=== PATIENT | male | born 1950 | race Caucasian/White ===

== ENCOUNTER 2021-05-09 11:04 | Inpatient (IN) | payer MEDICARE, BC, SELFPAY ==
[2021-05-09] VITALS (53 sets, daily range): BP systolic 84–118; BP diastolic 55–99; PULSE 60–90; RESP 11–27; TEMP 36.4–36.8; O2SAT 86–96
--- NOTE | ~2021-05-09 | XR_ITS ---
EXAMINATION: XR chest 1V portable 05/09/2021 11:44 INDICATION: Shortness of breath and cough PROCEDURE: AP portable chest COMPARISON: 09/22/2015 FINDINGS: The lungs are clear. The cardiomediastinal silhouette is within normal limits. There are no pleural effusions. There is no pneumothorax suspected. IMPRESSION: 1: NO ACUTE CARDIOPULMONARY DISEASE. Reviewed, dictated and finalized at location B. RUCTIONAL DESIGN SPECIALIST
--- NOTE | ~2021-05-09 | XR_ITS ---
XR chest 2V 05/12/2021 09:19 Indication: Pneumonia. Procedure: 2 view chest Comparison: 05/09/2021 Findings: Heart size normal. No focal air space disease, pulmonary edema, pleural effusion or suspect ed pneumothorax. No acute osseous abnormality. Impression: 1: No acute cardiopulmonary disease. Reviewed, dictated and finalized at location A. AND LINK KNITTING MACHINE OPERATOR Impression: 1: No acute cardiopulmonary disease.
--- NOTE | ~2021-05-09 | CT_ITS ---
EXAMINATION: CTA chest PE protocol DATE: 05/09/2021 13:01 PYROTECHNICIAN INDICATION: Hypoxia, fatigue and dry cough TECHNIQUE: Computed tomographic angiography (CTA) of the chest was performed with 100 mL Omnipaque-35 0 intravenous contrast. The dose-length product was 908.68 mGy-cm. Maximum intensity projection 3D-re constructions of the aorta and other arteries were constructed by the technologist on a separate work station. Automated exposure control and iterative reconstruction technique were employed. COMPARISON: None. FINDINGS: Study is technically adequate without evidence for pulmonary embolism. No thoracic lymphade nopathy. There is mediastinal lipomatosis. No significant pleural or pericardial effusion. The upper abdomen is unremarkable. There are reticulonodular densities in the right upper lobe, most likely inf ectious. No endobronchial lesions. There is dependent atelectasis. No pneumothorax. No endobronchial lesions. IMPRESSION: 1. Reticulonodular densities right upper lobe, most likely infectious/inflammatory. 2: No evidence for pulmonary embolism. Reviewed, dictated and finalized at location B. TECHNICIAN IMPRESSION: 1. Reticulonodular densities right upper lobe, most likely infectious/inflammat ory. 2: No evidence for pulmonary embolism.
--- NOTE | 2021-05-09 11:46 | ED.SOB ---
HPI - SOB/Dyspnea General Chief Complaint: Shortness of Breath/Dyspnea Stated Complaint: resp distress Time Seen by Provider: 05/09/21 11:05 History of Present Illness HPI Narrative: Patient is a 71-year-old male who presents ER with shortness of breath. Reports he has had a cough over the last week. His PCP prescribed Levaquin and Medrol Dosepak. He is not improving. Over the last couple days he has developed exertional shortness of breath I will occasionally give him some tightness. He is found to be hypoxic on room air and placed on supplemental O2. He reports he obtained a Covid swab at an urgent care prior to being sent here. No lower extremity swelling. No wheezing. No alleviating factors. No known sick contacts. He has had 3 doses of the Covid vaccine. Patient is HIV positive and compliant with antiretroviral therapy. Reports he has had undetectable viral load and normal CD4 count. Related Data Allergies Allergy/AdvReac Type Severity Reaction Status Date / Time No Known Allergies Allergy Verified 05/09/21 11:17 Review of Systems Review of Systems: All systems reviewed & are unremarkable except as noted in HPI and below Constitutional: Constitutional: Denies chills, Reports fatigue and Denies fever(s) ENT: Denies nasal congestion and Denies sore throat Cardiovascular: Cardiovascular: Reports chest pain, Denies rapid heart rate and Denies radiating jaw, neck or arm pain Respiratory: Respiratory: Denies chest congestion, Reports cough, Reports dyspnea and Denies wheezing Gastrointestinal: Gastrointestinal: Denies abdominal pain, Denies nausea and Denies vomiting PMFSH Past Medical History Medical History (Updated 05/09/21 @ 14:53 by Ramiro Jacques MD) HIV (human immunodeficiency virus infection) Hypercholesterolemia Hypertension Surgical History Surgical History (Updated 05/09/21 @ 11:50 by Ramiro Jacques MD) H/O neck surgery Social History Social History (Updated 05/09/21 @ 11:51 by Ramiro Jacques MD) Smoking status: Never smoker Exam Narrative: GENERAL: Well-appearing, well-nourished, and in no acute distress. HEAD: Normocephalic, atraumatic. CHEST: Clear to auscultation. No respiratory distress. HEART: Regular rate and rhythm. Normal peripheral pulses. ABDOMEN: Soft, nontender, nondistended. EXTREMITIES: Normal range of motion. No edema. SKIN: Warm, dry, no rash. NEURO: Alert and oriented x3. PSYCH: Normal mood and affect. Course Course Emergency Course: Patient informed of results. Admit to hospitalist service. Will give some Decadron which may help with his hypoxia. Vital Signs Vital signs: Vital Signs Respiratory Rate 26 H 05/09/21 11:08 Temperature 98.2 F 05/09/21 11:11 Pulse Rate 78 05/09/21 14:32 Respiratory Rate 23 H 05/09/21 14:32 Blood Pressure 118/87 05/09/21 14:32 Pulse Oximetry 93 05/09/21 14:32 MDM - SOB/Dyspnea Lab Data Result diagrams: 05/09/21 11:57 05/09/21 11:57 Labs: Lab Results 05/09/21 05/09/21 05/09/21 Range/Units 11:57 11:57 12:41 WBC 10.4 H (4.5-10.0) K/mm3 RBC 5.52 (4.6-6.20) M/mm3 Hgb 18.3 H (14.0-18.0) g/dL Hct 53.8 H (42.0-52.0) % MCV 97.5 (80-100) fl MCH 33.2 (26-34) pg MCHC 34.0 (32-36) g/dl RDW 16.5 H (11.5-14.5) % Plt Count 199 (150-375) k/mm3 MPV 10.0 (7.4-10.4) fl Immature Gran % (Auto) 2.0 H (0-0.5) % Neut % (Auto) 69.2 (45.5-73.1) % Lymph % (Auto) 17.3 L (18.3-44.2) % [place] % (Auto) 9.8 H (2.6-8.5) % Eos % (Auto) 1.3 (0-4.4) % Baso % (Auto) 0.4 (0.2-1.2) % Lymph # (Auto) 1.80 (0.9-3.2) K/mm3 [place] # (Auto) 1.0 H (0.1-0.6) K/mm3 Eos # (Auto) 0.1 (0-0.3) K/mm3 Baso # (Auto) 0.0 (0.0-0.1) K/mm3 Abs Immat Gran (auto) 0.21 H (0.00-0.031) K/mm3 Absolute Neuts (auto) 7.2 H (1.3-6.7) K/mm3 Absolute Nucleated RBC 0.0 (0.0-0.012) K/mm3 Nucleated RBC % 0
[2021-05-09 12:12] LABS: Basophils Percent Auto 0.4 % (0.2-1.2); Eosinophils Absolute Auto 0.1 K/mm3 (0-0.3); Eosinophils Percent Auto 1.3 % (0-4.4); Hematocrit 53.8 % (42.0-52.0); Hemoglobin 18.3 g/dL (14.0-18.0); Immature Granulocyte Absolute 0.21 K/mm3 (0.00-0.031); Lymphocytes Percent Auto 17.3 % (18.3-44.2); Mean Corpuscular Hemoglobin 33.2 pg (26-34); Mean Corpuscular Volume 97.5 fl (80-100); Monocytes Percent Auto 9.8 % (2.6-8.5); Neutrophils Absolute Auto 7.2 K/mm3 (1.3-6.7); Neutrophils Percent Auto 69.2 % (45.5-73.1); Platelet Count Result 199 k/mm3 (150-375); Red Blood Count 5.52 M/mm3 (4.6-6.20); Red Cell Distribution Width 16.5 % (11.5-14.5); White Blood Count 10.4 K/mm3 (4.5-10.0)
[2021-05-09 12:16] LABS: Alanine Aminotransferase 31 U/L (4-50); Albumin Level 4.2 g/dL (3.5-5.1); Alkaline Phosphatase 67 U/L (38-126); Anion Gap 5 mmol/L (8-16); Aspartate Amino Transferase 24 U/L (17-59); Bilirubin,Total 2.4 mg/dL (0.2-1.3); Blood Urea Nitrogen 34 mg/dL (9-20); Calcium 8.6 mg/dL (8.4-10.2); Carbon Dioxide 29 mmol/L (22-30); Chloride 100 mmol/L (98-107); Estimated CRCL calculation 61 ml/min; Estimated Glomerular Filt Rate 55; Glucose 108 mg/dL (65-110); Sodium 134 mmol/L (137-145)
--- NOTE | 2021-05-09 12:55 | PC.NURSE ---
Pt off floor in radiology
[2021-05-09 13:08] LABS: INR 0.9; Prothrombin Time 12.5 Seconds (11.1-14.7)
[2021-05-09 13:09] LABS: Partial Thromboplastin Time 26.2 SECONDS (22.3-36.8)
[2021-05-09] MEDS: DEXAMETHASONE SOD PHOS INJ 4 MG/ML VIAL 10 MG IV PUSH (14:34)
[2021-05-09] MEDS: ALBUTEROL SULFATE (*SP) AEROSOL 1 PUFF 4 PUFF INHALATION ×2 (14:40→21:07)
[2021-05-09 15:01] LABS: Alveolar/Arterial O2 Gradient 62.3 mmHg; Base Excess ABG 2.4 mEq/l (+/-2.0); Carboxyhemoglobin 0.3 % THb (0-2.0); Fractional Inspired Oxygen 36 %; HCO3 ABG 27.3 mEq/l (22.0-26.0); Methemoglobin ABG 0.7 %THb (0-1.5); Modified Allen's Test Pass; Oxygen Content ABG 25.1 %vol (16.0-22.0); Oxygen Saturation ABG 98.9 % (95.0-100.0); Oxyhemoglobin 92.5 % THb (90.0-100.0); PCO2 ABG 43.1 mmHg (35.0-45.0); PO2 ABG 144.4 mmHg (80.0-100.0); PO2 FiO2 Ratio Arterial Blood 4.01 %; Reduced Hemoglobin 6.5 %THb (0-5.0); Site Drawn LEFT RADIAL; Total Hemoglobin 19.2 g/dL (12.0-18.0)
[2021-05-09 15:02] LABS: Device NASAL CANNULA
--- NOTE | 2021-05-09 16:00 | PM.IMHP ---
H&P: HPI History of Present Illness Date/Time: 05/09/21 16:00 Chief Complaint: Hypoxia and shortness of breath. Narrative: This is a pleasant 71-year-old male with hypertension, hyperlipidemia, GERD, obstructive sleep apnea, and HIV on anti-retroviral therapy with undetectable viral load who presented to the emergency department earlier today via EMS from [facility] for evaluation of hypoxia and shortness of breath. He developed a pretty significant cough with wheezing about 10 days and he was prescribed a Medrol Dosepak and levofloxacin by his primary care provider for suspected bronchitis. His coughing jags were pretty significant at Thanksgiving dinner and he reports that he tried his nephews nebulizer which seemed to help maybe a little bit. Unfortunately he has not felt much better in fact he has since developed increasing dyspnea on exertion. At this time he is requiring 4 L nasal cannula to maintain his oxygen saturations in the mid 90s and he is being admitted in this setting. A chest x-ray did not show any significant findings although a subsequent CTA of the chest showed no evidence for pulmonary embolism but did note reticulonodular densities in the right upper lobe felt to be infectious/inflammatory in etiology. He denies fever, chills, sweats, dysphagia, concerns for aspiration, pleuritic pain, nausea, vomiting, and diarrhea. No sick contacts. He is fully vaccinated against COVID and did receive his booster. Review of Systems Review of Systems: Twelve systems were reviewed. No headache or neck ache. He denies sinus congestion, rhinorrhea, otalgia, and odynophagia. He has had some mild postnasal drip however. He has sleep apnea however is intolerant to CPAP. No exertional chest pain. No palpitations. No lower extremity edema, calf pain, or tenderness. No history of venous thromboembolism. No history of asthma or COPD. Except as documented, all other systems were reviewed and are negative. [facility] Past Medical History Medical History (Updated 05/09/21 @ 22:02 by Светлана Spaulding PA-C) Depression with anxiety Gastroesophageal reflux disease Human immunodeficiency virus Hypercholesterolemia Hypertension Obstructive sleep apnea Intolerant to CPAP. Surgical History Surgical History (Updated 05/09/21 @ 21:58 by Светлана Spaulding PA-C) History of arthroscopy of right knee History of carpal tunnel release History of left hip replacement History of lumbar surgery Family History Family History (Updated 05/09/21 @ 21:58 by Светлана Spaulding PA-C) Other Heart disease Social History Social History (Updated 05/09/21 @ 21:59 by Светлана Spaulding PA-C) Social History: The patient is , his several years ago. He lives in his own home in [place] with his dog Ania. 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 Lifelong nonsmoker. No alcohol or illicit substance abuse. Meds Home Medications and Allergies Home Medications Medication Instructions Recorded Confirmed Type aspirin 81 mg PO HS 05/09/21 05/09/21 History atorvastatin 40 mg PO QPM 05/09/21 05/09/21 History celecoxib 200 mg PO DAILY 05/09/21 05/09/21 History citalopram 40 mg PO DAILY 05/09/21 05/09/21 History [id number]-tenof alafen 1 tablet PO QPM 05/09/21 05/09/21 History [Genvoya] furosemide 40 mg PO DAILY 05/09/21 05/09/21 History metoprolol succinate 50 mg PO QPM 05/09/21 05/09/21 History pantoprazole 40 mg PO BID 05/09/21 05/09/21 History potassium chloride [Klor-Con M10] 10 meq PO BID 05/09/21 05/09/21 History testosterone propionate 5 mg IM [id number] 05/09/21 05/09/21 History valsartan 320 mg PO DAILY 05/09/21 05/09/21 History Allergies Allergy/AdvReac Type Severity Reaction Status Date / Time No Known Allergies Allergy Verified 05/09/21 18:11 Vital Signs Vital Signs - 24 hr 05/09/21 11:08 05/09/21 11:11 05/09/21 11:12 Temperature 98.2 F Pulse Rate 81 82 Respiratory Rate 26 H 23 H 22 H Blood Pressure 97/68
--- NOTE | 2021-05-09 18:13 | ADMGEN ---
This patient, Danny Pelaez, was admitted to [facility] Surg Room 327-01. Patient/family oriented to hospital policies and general routines including ID bracelet, bed and alarms, visiting hours, pain management, procedures, bathroom and other care routines, personal items, smoking policy, room service/diet, and visiting hours. Information on how to activate the Rapid Response Team has been discussed. Patient/Family are encouraged to report perceived risks to care and to ask questions if they do not understand what they are told or what they should do.
[2021-05-09] MEDS: ACETAMINOPHEN 325 MG TABLET 650 MG PO (21:05)
[2021-05-09] MEDS: SODIUM CHLORIDE 0.9% IV 1,000 ML 100 ML IV CONT (22:35)
[2021-05-10] VITALS (9 sets, daily range): BP systolic 102–131; BP diastolic 63–80; PULSE 77–102; RESP 16–18; TEMP 36.1–36.4; O2SAT 92–94
[2021-05-10 02:32] LABS: SARS-CoV-2 RNA PCR Negative
[2021-05-10] MEDS: ALBUTEROL SULFATE (*SP) AEROSOL 1 PUFF 4 PUFF INHALATION ×2 (02:49→08:16)
[2021-05-10 06:40] LABS: Hematocrit 51.4 % (42.0-52.0); Hemoglobin 17.2 g/dL (14.0-18.0); Mean Corpuscular HGB Conc 33.5 g/dl (32-36); Mean Corpuscular Hemoglobin 33.9 pg (26-34); Mean Corpuscular Volume 101.2 fl (80-100); Mean Platelet Volume 10.2 fl (7.4-10.4); Platelet Count Result 199 k/mm3 (150-375); Red Blood Count 5.08 M/mm3 (4.6-6.20); Red Cell Distribution Width 16.5 % (11.5-14.5); White Blood Count 15.4 K/mm3 (4.5-10.0)
[2021-05-10 07:00] LABS: Anion Gap 8 mmol/L (8-16); Blood Urea Nitrogen 27 mg/dL (9-20); CRP 0.5 mg/dL (<1.0); Calcium 8.2 mg/dL (8.4-10.2); Carbon Dioxide 26 mmol/L (22-30); Chloride 98 mmol/L (98-107); Estimated CRCL calculation 78 ml/min; Estimated Glomerular Filt Rate > 60; Glucose 174 mg/dL (65-110); Magnesium 2.2 mg/dL (1.6-2.3); Potassium 3.9 mmol/L (3.4-5.0); Sodium 132 mmol/L (137-145)
[2021-05-10 07:34] LABS: Thyroid Stimulating Hormone Reflex 0.344 uIU/mL (0.465-4.68)
[2021-05-10] MEDS: CELECOXIB 200 MG CAPSULE PO (08:49)
[2021-05-10] MEDS: CITALOPRAM HYDROBROMIDE 10 MG TABLET 40 MG PO (08:49)
[2021-05-10] MEDS: PANTOPRAZOLE 40 MG TABLET PO ×2 (08:50→17:35)
[2021-05-10 08:51] LABS: Free T4 Free Thyroxine Reflex 0.96 ng/dL (0.78-2.19)
--- NOTE | 2021-05-10 09:29 | PM.CNPUL ---
Assessment and Plan Assessment and plan (1) Acute bronchitis: Qualifiers: Bronchitis organism: unspecified organism Qualified Code(s): J20.9 - Acute bronchitis, unspecified Code(s): J20.9 - Acute bronchitis, unspecified Status: Acute Assessment and Plan: 71-year-old man with history of HIV, recently treated for acute sinusitis, has had a mostly dry cough without wheezing on physical exam, hypoxemia, and a questionable small ground-glass opacity in the right upper lobe. patient has been tested negative for COVID 19 infection via PCR. I would test patient for influenza A and B. No need to start him on antibiotics at this point. Added nebulized bronchodilators and nebulized budesonide twice daily. Needs to be on DVT prophylaxis, out of bed to chair. Add incentive spirometry. monitor respiratory status. (2) Hypoxia: Code(s): R09.02 - Hypoxemia Status: Acute (3) Acute respiratory failure with hypoxia: Code(s): J96.01 - Acute respiratory failure with hypoxia Status: Acute (4) Abnormal chest CT: Code(s): R93.89 - Abnormal findings on diagnostic imaging of other specified body structures Status: Acute (5) Cough: Code(s): R05.9 - Cough, unspecified Status: Acute History of Present Illness History of Present Illness Consult date: 05/10/21 Chief complaint: covid pui/hypoxia Narrative: This 71-year-old man presented with a cough and shortness of breath. The patient has history of HIV on anti retroviral treatment with non detectable viral load. He was in his usual state of health until approximately one week ago when he had sinus congestion, with some yellow nasal discharge. The patient was placed on levofloxacin and oral steroid burst. Approximately 2 days ago he started having a mostly dry cough, occasionally productive of yellow phlegm, also fatigue and mild shortness of breath. He had no fever chills hemoptysis or wheezing. In the emergency room, he had hypoxemia and was placed on supplemental oxygen via nasal cannula. The initial chest x-ray was negative. Chest CT showed no pulmonary embolism but raised question of faint infiltrates in the right upper lobe. Upon questioning the patient stated that his cough seems to be getting better. He is currently on albuterol inhaler p.r.n.. He denied having other symptoms such as abdominal pain, nausea, vomiting, orthopnea, lower extremity edema. He has got history of nasal allergies especially this time of the year for which in the past had been on ryww-kcg-vuvqjld decongestants. He never had history of asthma. He is a nonsmoker. Review of Systems Review of Systems: All systems reviewed & are unremarkable except as noted in HPI and below (H and P and below) [facility] Past Medical History Medical History (Updated 05/10/21 @ 09:37 by Porfirio Sapp MD) Depression with anxiety Gastroesophageal reflux disease Human immunodeficiency virus Hypercholesterolemia Hypertension Obstructive sleep apnea Intolerant to CPAP. Surgical History Surgical History (Updated 05/09/21 @ 21:58 by Светлана Spaulding PA-C) History of arthroscopy of right knee History of carpal tunnel release History of left hip replacement History of lumbar surgery Family History Family History (Updated 05/09/21 @ 21:58 by Светлана Spaulding PA-C) Other Heart disease Social History Social History (Updated 05/09/21 @ 21:59 by Светлана Spaulding PA-C) Social History: The patient is , his several years ago. He lives in his own home in [place] with his dog Ania. 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 Lifelong nonsmoker. No alcohol or illicit substance abuse. Meds Home Medications and Allergies Home Medications Medication Instructions Recorded Confirmed Type aspirin 81 mg PO HS 05/09/21 05/09/21 History atorvastatin 40 mg PO QPM 05/09/21 05/09/21 History celecoxib 200 mg PO DAILY 05/09/21 05/09/21 History
[2021-05-10 09:38] LABS: Total Triiodothyronine (T3) 0.89 NG/ML (0.97-1.69)
--- NOTE | 2021-05-10 10:08 | PM.IMPN ---
Progress Note: A&P Assessment and Plan (1) Acute respiratory failure with hypoxia: Code(s): J96.01 - Acute respiratory failure with hypoxia Status: Acute Assessment and Plan: most likely related to pneumonia associated with bronchitis most likely bacterial CT scan showed Reticulonodular densities were noted in the right upper lobe and he has been started on antibiotics for possible underlying infection. He traveled to [place] within the last several months but he has had no other significant travel recently. Given upper lobe predominance and oxygen requirement pending pulmonology evaluation (2) Abnormal chest CT: Code(s): R93.89 - Abnormal findings on diagnostic imaging of other specified body structures Status: Acute Assessment and Plan: pending pulmonology eval (3) Hypertension: Code(s): I10 - Essential (primary) hypertension Status: Chronic Assessment and Plan: Furosemide . (4) Human immunodeficiency virus: Code(s): B20 - Human immunodeficiency virus [HIV] disease Status: Acute Assessment and Plan: On anti retroviral therapy. Patient reports undetectable viral load and normal CD4 counts. (5) Person under investigation for COVID-19: Code(s): Z20.822 - Contact with and (suspected) exposure to COVID-19 Status: Acute Assessment and Plan: neg SARS-CoV-2 by PCR. Subjective Date/time seen: 05/10/21 10:08 Interval history: Patient seen and examined Patient feels weak short of breath on oxygen but better than yesterday leukocytosis worse Patient denies fever headache chest pain I am seeing the patient for shortness of breath Exam Narrative: Alert Chest bilateral crackles and wheeze Abdomen nontender nondistended CVS S1 + S2 Lower extremity edema Objective Data Vital Signs Vital Signs: Vital Signs - 24 hr 05/09/21 11:08 05/09/21 11:11 05/09/21 11:12 Temperature 98.2 F Pulse Rate 81 82 Respiratory Rate 26 H 23 H 22 H Blood Pressure 97/68 L 97/68 L Pulse Oximetry 86 L 91 05/09/21 11:15 05/09/21 11:16 05/09/21 11:18 Temperature Pulse Rate 77 79 78 Respiratory Rate 16 17 Blood Pressure 102/68 Pulse Oximetry 92 91 94 05/09/21 11:30 05/09/21 11:31 05/09/21 11:45 Temperature Pulse Rate 79 73 88 Respiratory Rate 12 15 19 Blood Pressure 110/72 Pulse Oximetry 94 94 94 05/09/21 12:00 05/09/21 12:41 05/09/21 12:43 Temperature Pulse Rate 83 76 77 Respiratory Rate 21 H 24 H 21 H Blood Pressure 108/68 Pulse Oximetry 92 92 94 05/09/21 12:44 05/09/21 12:45 05/09/21 12:46 Temperature Pulse Rate 81 80 74 Respiratory Rate 19 20 20 Blood Pressure 108/68 105/67 Pulse Oximetry 93 94 94 05/09/21 13:28 05/09/21 13:30 05/09/21 13:31 Temperature Pulse Rate 71 72 71 Respiratory Rate 21 H 24 H 21 H Blood Pressure 104/73 Pulse Oximetry 92 91 05/09/21 13:45 05/09/21 13:46 05/09/21 14:11 Temperature Pulse Rate 80 70 78 Respiratory Rate 21 H 24 H 18 Blood Pressure 105/64 Pulse Oximetry 94 93 94 05/09/21 14:15 05/09/21 14:16 05/09/21 14:17 Temperature Pulse Rate 81 79 80 Respiratory Rate 27 H 20 26 H Blood Pressure 101/74 Pulse Oximetry 90 90 93 05/09/21 14:30 05/09/21 14:32 05/09/21 14:33 Temperature Pulse Rate 81 78 67 Respiratory Rate 23 H 23 H 20 Blood Pressure 118/87 Pulse Oximetry 93 92 05/09/21 14:45 05/09/21 14:46 05/09/21 15:00 Temperature Pulse Rate 65 63 60 Respiratory Rate 26 H 26 H 11 L Blood Pressure 109/64 Pulse Oximetry 94 94 96 05/09/21 15:01 05/09/21 15:15 05/09/21 15:16 Temperature Pulse Rate 82 66 64 Respiratory Rate 25 H 21 H 21 H Blood Pressure 98/80 L 106/72 Pulse Oximetry 94 96 96 05/09/21 15:30 05/09/21 15:31 05/09/21 15:45 Temperature Pulse Rate 63 71 62 Respiratory Rate 19 22 H 19 Blood Pressure 94/62 L Pulse Oximetry 93 93 93 05/09/21 15:46 11
[2021-05-10] MEDS: ACETAMINOPHEN 325 MG TABLET 650 MG PO (10:37)
--- NOTE | 2021-05-10 10:48 | PC.NURSE ---
bp 100/58 dioyin held for today only, Dr Murcia notified
[2021-05-10 11:02] LABS: Influenza Control Positive
[2021-05-10] MEDS: cefTRIAXone 2 GM in SODIUM CHLORIDE 0.9% IV 100 ML 200 ML IVPB (13:11)
[2021-05-10] MEDS: guaiFENesin/DEXTROMETHORPHAN 10 ML UDC PO (15:01)
[2021-05-10] MEDS: METOPROLOL SUCCINATE EXT REL 50 MG TABCR PO (17:35)
[2021-05-10] MEDS: ATORVASTATIN 40 MG TABLET PO (17:35)
--- NOTE | 2021-05-10 19:27 | PHAR ---
Home medication Genvoya tablets seen in pharmacy and returned to [address] [place] [address] unit
[2021-05-10] MEDS: ASPIRIN 81 MG ENTERIC TABLET PO (20:03)
[2021-05-11] VITALS (11 sets, daily range): BP systolic 97–118; BP diastolic 60–74; PULSE 59–75; RESP 16–19; TEMP 35.8–36.7; O2SAT 88–96
--- NOTE | 2021-05-11 02:12 | PCRCNOTE ---
Window of time for administration has passed. See next scheduled administration.
[2021-05-11 07:27] LABS: Basophils Percent Auto 0.2 % (0.2-1.2); Eosinophils Percent Auto 0.4 % (0-4.4); Hematocrit 47.9 % (42.0-52.0); Hemoglobin 15.6 g/dL (14.0-18.0); Immature Granulocyte Percent A 1.8 % (0-0.5); Lymphocytes Absolute Auto 1.48 K/mm3 (0.9-3.2); Lymphocytes Percent Auto 13.2 % (18.3-44.2); Mean Corpuscular HGB Conc 32.6 g/dl (32-36); Mean Corpuscular Hemoglobin 33.5 pg (26-34); Mean Platelet Volume 10.4 fl (7.4-10.4); Monocytes Absolute Auto 0.9 K/mm3 (0.1-0.6); Monocytes Percent Auto 8.1 % (2.6-8.5); Neutrophils Absolute Auto 8.6 K/mm3 (1.3-6.7); Neutrophils Percent Auto 76.3 % (45.5-73.1); Platelet Count Result 158 k/mm3 (150-375); Red Blood Count 4.65 M/mm3 (4.6-6.20); Red Cell Distribution Width 17.1 % (11.5-14.5); White Blood Count 11.2 K/mm3 (4.5-10.0)
[2021-05-11 08:03] LABS: Alanine Aminotransferase 22 U/L (4-50); Albumin Level 3.4 g/dL (3.5-5.1); Alkaline Phosphatase 48 U/L (38-126); Anion Gap 2 mmol/L (8-16); Aspartate Amino Transferase 21 U/L (17-59); Bilirubin,Total 1.5 mg/dL (0.2-1.3); Blood Urea Nitrogen 24 mg/dL (9-20); Calcium 8.1 mg/dL (8.4-10.2); Carbon Dioxide 30 mmol/L (22-30); Chloride 101 mmol/L (98-107); Estimated CRCL calculation 80 ml/min; Estimated Glomerular Filt Rate > 60; Glucose 103 mg/dL (65-110); Potassium 4.3 mmol/L (3.4-5.0); Sodium 133 mmol/L (137-145)
[2021-05-11] MEDS: CELECOXIB 200 MG CAPSULE PO (08:28)
[2021-05-11] MEDS: VALSARTAN 160 MG TABLET 320 MG PO (08:28)
[2021-05-11] MEDS: cefTRIAXone 2 GM in SODIUM CHLORIDE 0.9% IV 100 ML 200 ML IVPB (08:28)
[2021-05-11] MEDS: PANTOPRAZOLE 40 MG TABLET PO ×2 (08:28→17:24)
[2021-05-11] MEDS: CITALOPRAM HYDROBROMIDE 10 MG TABLET 40 MG PO (08:28)
[2021-05-11] MEDS: FUROSEMIDE 40 MG TABLET PO (08:29)
--- NOTE | 2021-05-11 09:45 | PM.PNPUL ---
Progress Note: A&P Assessment and Plan (1) Acute bronchitis: Qualifiers: Bronchitis organism: unspecified organism Qualified Code(s): J20.9 - Acute bronchitis, unspecified Code(s): J20.9 - Acute bronchitis, unspecified Status: Acute Assessment and Plan: He continues to have cough but less than before, no wheezing on physical exam. Currently on antibiotics for possible pneumonia. Will get chest x-ray two view in a.m. continue with nebulized albuterol and Pulmicort. Out of bed to chair. Consider DVT prophylaxis. (2) Cough: Code(s): R05.9 - Cough, unspecified Status: Acute (3) Acute respiratory failure with hypoxia: Code(s): J96.01 - Acute respiratory failure with hypoxia Status: Acute (4) Human immunodeficiency virus: Code(s): B20 - Human immunodeficiency virus [HIV] disease Status: Acute Subjective Date/time seen: 05/11/21 09:45 patient continues to cough but less than before. Slept well last night. Feeling little better. Afebrile. On antibiotics for possible pneumonia. Review of Systems Review of Systems: All systems reviewed & are unremarkable except as noted in HPI and below (H and p and below) Exam Narrative: GENERAL APPEARANCE: Well developed, well nourished, alert and cooperative, and appears to be in no acute distress SKIN: Inspection of the skin reveals no rashes, ulcerations or petechiae. HEENT: Sclerae anicteric and conjunctivae pink and moist. Extraocular movements were intact and pupils were equal, round. NECK: Supple. There was no thyroid enlargement, and no tenderness, or masses were felt. CHEST: Normal AP diameter and normal contour without any kyphoscoliosis. LUNGS: Auscultation of the lungs revealed normal breath sounds without any other adventitious sounds or rubs. coughing with deep inspirations. CARDIAC: There was a regular rate and rhythm without any murmurs, gallops, rubs. ABDOMEN: Soft and nontender with normal bowel sounds. There was no organomegaly. LYMPH NODES: No lymphadenopathy was appreciated in the neck. EXTREMITIES: No cyanosis, clubbing or edema. NEUROLOGIC: Alert and oriented x 3. Normal affect. Objective Data Vital Signs Vital Signs: Vital Signs - 24 hr 05/10/21 14:00 05/10/21 17:35 05/10/21 17:37 Temperature 36.3 C L Pulse Rate 89 90 Respiratory Rate 18 Blood Pressure 102/63 120/80 Pulse Oximetry 94 05/10/21 20:00 05/10/21 22:00 05/11/21 06:00 Temperature 36.1 C L 35.8 C L Pulse Rate 77 61 Respiratory Rate 16 16 Blood Pressure 131/75 114/65 Pulse Oximetry 94 94 95 Intake/Output Intake/Output: Intake & Output 05/08/21 05/09/21 05/10/21 05/11/21 23:59 23:59 23:59 23:59 Intake Total 2400 800 Balance 2400 800 Meds/Results Medications: Active Medications Generic Name Dose Route Start Last Admin Trade Name Freq PRN Reason Stop Dose Admin Acetaminophen 650 mg 05/09/21 14:25 05/10/21 10:37 Acetaminophen 325 Mg Tablet PO 650 mg Q4H PRN Administration Mild Pain (1-3) or Fever Hydrocodone Bitart/Acetaminophen 1 tab 05/09/21 14:25 Hydrocodone/Acetaminophen (*Crx) 5-325 Mg Tablet PO Q4H PRN Pain Rated 4-6 Albuterol 2.5 mg 05/10/21 09:28 Albuterol Sulfate Neb 2.5 Mg/0.5 Ml Inh INHALATION Q6HRT PRN Shortness Of Breath Aspirin 81 mg 05/10/21 21:00 05/10/21 20:03 Aspirin 81 Mg Enteric Tablet PO 06/09/21 20:59 81 mg HS [place] Administration Atorvastatin Calcium 40 mg 05/10/21 18:00 05/10/21 17:35 Atorvastatin 40 Mg Tablet PO 40 mg QPM [place] Administration Budesonide 0.5 mg 05/10/21 20:00 05/11/21 02:12 Budesonide Respule Neb 0.5 Mg/2 Ml Amp INHALATION Not Given Q12HRT [place] Celecoxib 200 mg 05/10/21 08:00 05/11/21 08:28 Celecoxib 200 Mg Capsule PO 200 mg DAILY@0800 [place] Administration Citalopram Hydrobromide 40 mg 05/10/21 09:00 05/11/21 08:28 Citalopram Hydrobromide 10 Mg Tablet
--- NOTE | 2021-05-11 11:21 | PM.IMPN ---
Progress Note: A&P Assessment and Plan (1) Acute respiratory failure with hypoxia: Code(s): J96.01 - Acute respiratory failure with hypoxia Status: Acute Assessment and Plan: most likely related to pneumonia associated with bronchitis most likely bacterial CT scan showed Reticulonodular densities were noted in the right upper lobe and he has been started on antibiotics for possible underlying infection. He traveled to [facility] within the last several months but he has had no other significant travel recently. Given upper lobe predominance and oxygen requirement pulmonology recommendation appreciated repeat chest x-ray in a.m. continue current antibiotics IV Rocephin IV azithromycin (2) Abnormal chest CT: Code(s): R93.89 - Abnormal findings on diagnostic imaging of other specified body structures Status: Acute Assessment and Plan: Pulmonary recommendation appreciated probable pneumonia repeat chest x-ray in a.m. (3) Hypertension: Code(s): I10 - Essential (primary) hypertension Status: Chronic Assessment and Plan: Continue home medication (4) Human immunodeficiency virus: Code(s): B20 - Human immunodeficiency virus [HIV] disease Status: Acute Assessment and Plan: On anti retroviral therapy. Patient reports undetectable viral load and normal CD4 counts. (5) Person under investigation for COVID-19: Code(s): Z20.822 - Contact with and (suspected) exposure to COVID-19 Status: Acute Assessment and Plan: neg SARS-CoV-2 by PCR. Subjective Date/time seen: 05/11/21 11:21 Interval history: Patient seen and examined Patient feels weak short of breath on oxygen but better than yesterday Leukocytosis has improved plan to repeat chest x-ray by pulmonology in a.m. Anticipate discharge in the next 24-48 hours pending pulmonology final recommendation Continue current antibiotic IV Rocephin IV azithromycin Patient denies fever headache chest pain I am seeing the patient for shortness of breath Exam Narrative: Alert Chest bilateral crackles and wheeze Abdomen nontender nondistended CVS S1 + S2 Lower extremity edema Objective Data Vital Signs Vital Signs: Vital Signs - 24 hr 05/10/21 14:00 05/10/21 17:35 05/10/21 17:37 Temperature 97.3 F L Pulse Rate 89 90 Respiratory Rate 18 Blood Pressure 102/63 120/80 Pulse Oximetry 94 05/10/21 20:00 05/10/21 22:00 05/11/21 06:00 Temperature 97.0 F L 96.5 F L Pulse Rate 77 61 Respiratory Rate 16 16 Blood Pressure 131/75 114/65 Pulse Oximetry 94 94 95 05/11/21 10:51 05/11/21 10:54 05/11/21 11:00 Temperature Pulse Rate Respiratory Rate Blood Pressure Pulse Oximetry 96 94 94 05/11/21 11:09 Temperature Pulse Rate Respiratory Rate Blood Pressure Pulse Oximetry 92 Intake/Output Intake/Output: Intake & Output 05/08/21 05/09/21 05/10/21 05/11/21 23:59 23:59 23:59 23:59 Intake Total 2400 1050 Balance 2400 1050 Meds/Results Medications: Active Medications Generic Name Dose Route Start Last Admin Trade Name Freq PRN Reason Stop Dose Admin Acetaminophen 650 mg 05/09/21 14:25 05/10/21 10:37 Acetaminophen 325 Mg Tablet PO 650 mg Q4H PRN Administration Mild Pain (1-3) or Fever Hydrocodone Bitart/Acetaminophen 1 tab 05/09/21 14:25 Hydrocodone/Acetaminophen (*Crx) 5-325 Mg Tablet PO Q4H PRN Pain Rated 4-6 Albuterol 2.5 mg 05/10/21 09:28 Albuterol Sulfate Neb 2.5 Mg/0.5 Ml Inh INHALATION Q6HRT PRN Shortness Of Breath Aspirin 81 mg 05/10/21 21:00 05/10/21 20:03 Aspirin 81 Mg Enteric Tablet PO 06/09/21 20:59 81 mg HS [place] Administration Atorvastatin Calcium 40 mg 05/10/21 18:00 05/10/21 17:35 Atorvastatin 40 Mg Tablet PO 40 mg QPM [place] Administration Budesonide 0.5 mg 05/10/21 20:00 05/11/21 02:12 Budesonide Respule Neb 0.5 Mg/2 Ml Amp INHALATI
--- NOTE | 2021-05-11 12:09 | PCRCNOTE ---
Window of time for administration has passed. See next scheduled administration.
[2021-05-11] MEDS: METOPROLOL SUCCINATE EXT REL 50 MG TABCR PO (17:23)
[2021-05-11] MEDS: ATORVASTATIN 40 MG TABLET PO (17:23)
[2021-05-11] MEDS: ASPIRIN 81 MG ENTERIC TABLET PO (21:07)
[2021-05-11] MEDS: BUDESONIDE RESPULE NEB 0.5 MG/2 ML AMP INHALATION (22:28)
[2021-05-12 05:32] VITALS: BP 105/71; PULSE 55; RESP 18; TEMP 37.1; O2SAT 93
[2021-05-12 06:56] LABS: Basophils Percent Auto 0.2 % (0.2-1.2); Eosinophils Absolute Auto 0.1 K/mm3 (0-0.3); Eosinophils Percent Auto 1.1 % (0-4.4); Hematocrit 48.4 % (42.0-52.0); Hemoglobin 15.8 g/dL (14.0-18.0); Immature Granulocyte Absolute 0.12 K/mm3 (0.00-0.031); Immature Granulocyte Percent A 1.4 % (0-0.5); Lymphocytes Absolute Auto 2.01 K/mm3 (0.9-3.2); Lymphocytes Percent Auto 24.1 % (18.3-44.2); Mean Corpuscular HGB Conc 32.6 g/dl (32-36); Mean Corpuscular Hemoglobin 34.2 pg (26-34); Mean Corpuscular Volume 104.8 fl (80-100); Mean Platelet Volume 10.1 fl (7.4-10.4); Monocytes Absolute Auto 0.9 K/mm3 (0.1-0.6); Monocytes Percent Auto 10.3 % (2.6-8.5); Neutrophils Absolute Auto 5.3 K/mm3 (1.3-6.7); Neutrophils Percent Auto 62.9 % (45.5-73.1); Platelet Count Result 146 k/mm3 (150-375); Red Blood Count 4.62 M/mm3 (4.6-6.20); Red Cell Distribution Width 16.7 % (11.5-14.5); White Blood Count 8.4 K/mm3 (4.5-10.0)
[2021-05-12 07:09] LABS: Alanine Aminotransferase 27 U/L (4-50); Albumin Level 3.3 g/dL (3.5-5.1); Alkaline Phosphatase 51 U/L (38-126); Anion Gap 2 mmol/L (8-16); Aspartate Amino Transferase 22 U/L (17-59); Bilirubin,Total 1.4 mg/dL (0.2-1.3); Blood Urea Nitrogen 22 mg/dL (9-20); Carbon Dioxide 31 mmol/L (22-30); Chloride 99 mmol/L (98-107); Estimated CRCL calculation 80 ml/min; Estimated Glomerular Filt Rate > 60; Glucose 91 mg/dL (65-110); Potassium 3.9 mmol/L (3.4-5.0); Sodium 132 mmol/L (137-145)
[2021-05-12] MEDS: cefTRIAXone 2 GM in SODIUM CHLORIDE 0.9% IV 100 ML 200 ML IVPB (08:59)
[2021-05-12] MEDS: VALSARTAN 160 MG TABLET 320 MG PO (08:59)
[2021-05-12] MEDS: PANTOPRAZOLE 40 MG TABLET PO (09:00)
[2021-05-12] MEDS: CITALOPRAM HYDROBROMIDE 10 MG TABLET 40 MG PO (09:00)
[2021-05-12] MEDS: FUROSEMIDE 40 MG TABLET PO (09:00)
[2021-05-12] MEDS: CELECOXIB 200 MG CAPSULE PO (09:00)
--- NOTE | 2021-05-12 09:16 | PC.NURSE ---
to xray per w/c
--- NOTE | 2021-05-12 09:59 | PM.PNPUL ---
Progress Note: A&P Assessment and Plan (1) Acute bronchitis: Qualifiers: Bronchitis organism: unspecified organism Qualified Code(s): J20.9 - Acute bronchitis, unspecified Code(s): J20.9 - Acute bronchitis, unspecified Status: Acute Assessment and Plan: He continues to have cough but less than before, no wheezing on physical exam. Ceftriaxone was discontinued. chest x-ray showed no evidence of pneumonia. Continue with Zithromax for a total of 5 days. consider DC home within 1-2 days. would keep patient on steroid inhaler like Pulmicort 180, 1 puff twice daily, and albuterol inhaler p.r.n., until cough completely clears. We will sign off. (2) Cough: Code(s): R05.9 - Cough, unspecified Status: Acute (3) Acute respiratory failure with hypoxia: Code(s): J96.01 - Acute respiratory failure with hypoxia Status: Acute (4) Human immunodeficiency virus: Code(s): B20 - Human immunodeficiency virus [HIV] disease Status: Acute Subjective Date/time seen: 05/12/21 09:59 doing better. Coughing less, currently on room air. Willing to go home. Review of Systems Review of Systems: All systems reviewed & are unremarkable except as noted in HPI and below (H and p and below) Exam Narrative: GENERAL APPEARANCE: Well developed, well nourished, alert and cooperative, and appears to be in no acute distress SKIN: Inspection of the skin reveals no rashes, ulcerations or petechiae. HEENT: Sclerae anicteric and conjunctivae pink and moist. Extraocular movements were intact and pupils were equal, round. NECK: Supple. There was no thyroid enlargement, and no tenderness, or masses were felt. CHEST: Normal AP diameter and normal contour without any kyphoscoliosis. LUNGS: Auscultation of the lungs revealed normal breath sounds without any other adventitious sounds or rubs. less coughing with deep inspirations today. CARDIAC: There was a regular rate and rhythm without any murmurs, gallops, rubs. ABDOMEN: Soft and nontender with normal bowel sounds. There was no organomegaly. LYMPH NODES: No lymphadenopathy was appreciated in the neck. EXTREMITIES: No cyanosis, clubbing or edema. NEUROLOGIC: Alert and oriented x 3. Normal affect. Objective Data Vital Signs Vital Signs: Vital Signs - 24 hr 12/02/21 10:51 05/11/21 10:54 05/11/21 11:00 Temperature Pulse Rate Respiratory Rate Blood Pressure Pulse Oximetry 96 94 94 05/11/21 11:09 05/11/21 14:00 05/11/21 17:23 Temperature 36.3 C L Pulse Rate 72 72 Respiratory Rate 19 Blood Pressure 97/60 L Pulse Oximetry 92 93 05/11/21 17:32 05/11/21 19:04 05/11/21 21:49 Temperature 36.7 C Pulse Rate 75 Respiratory Rate 18 Blood Pressure 118/74 101/66 Pulse Oximetry 92 91 92 05/11/21 22:31 05/12/21 05:32 Temperature 37.1 C Pulse Rate 59 L 55 L Respiratory Rate 18 18 Blood Pressure 105/71 Pulse Oximetry 90 93 Intake/Output Intake/Output: Intake & Output 05/09/21 05/10/21 05/11/21 05/12/21 23:59 23:59 23:59 23:59 Intake Total 2400 2530 350 Balance 2400 2530 350 Meds/Results Medications: Active Medications Generic Name Dose Route Start Last Admin Trade Name Freq PRN Reason Stop Dose Admin Acetaminophen 650 mg 05/09/21 14:25 05/10/21 10:37 Acetaminophen 325 Mg Tablet PO 650 mg Q4H PRN Administration Mild Pain (1-3) or Fever Hydrocodone Bitart/Acetaminophen 1 tab 05/09/21 14:25 Hydrocodone/Acetaminophen (*Crx) 5-325 Mg Tablet PO Q4H PRN Pain Rated 4-6 Albuterol 2.5 mg 05/10/21 09:28 Albuterol Sulfate Neb 2.5 Mg/0.5 Ml Inh INHALATION Q6HRT PRN Shortness Of Breath Aspirin 81 mg 05/10/21 21:00 05/11/21 21:07 Aspirin 81 Mg Enteric Tablet PO 06/09/21 20:59 81 mg HS [place] Administration Atorvastatin Calcium 40 mg 05/10/21 18:00 05/11/21 17:23 Atorvastatin 40 Mg Tablet PO 40 mg QPM [place] Administration Evon
--- NOTE | 2021-05-12 10:29 | PM.IMPN ---
Progress Note: A&P Assessment and Plan (1) Acute respiratory failure with hypoxia: Code(s): J96.01 - Acute respiratory failure with hypoxia Status: Acute Assessment and Plan: most likely related to pneumonia associated with bronchitis most likely bacterial CT scan showed Reticulonodular densities were noted in the right upper lobe and he has been started on antibiotics for possible underlying infection. He traveled to [facility] within the last several months but he has had no other significant travel recently. Given upper lobe predominance and oxygen requirement pulmonology recommendation appreciated repeat chest x-ray in a.m. continue current antibiotics IV Rocephin IV azithromycin (2) Abnormal chest CT: Code(s): R93.89 - Abnormal findings on diagnostic imaging of other specified body structures Status: Acute Assessment and Plan: Pulmonary recommendation appreciated probable pneumonia repeat chest x-ray in a.m. (3) Hypertension: Code(s): I10 - Essential (primary) hypertension Status: Chronic Assessment and Plan: Continue home medication (4) Human immunodeficiency virus: Code(s): B20 - Human immunodeficiency virus [HIV] disease Status: Acute Assessment and Plan: On anti retroviral therapy. Patient reports undetectable viral load and normal CD4 counts. (5) Person under investigation for COVID-19: Code(s): Z20.822 - Contact with and (suspected) exposure to COVID-19 Status: Acute Assessment and Plan: neg SARS-CoV-2 by PCR. Subjective Date/time seen: 05/12/21 10:29 Interval history: Patient seen and examined Patient feels weak short of breath on oxygen but better than yesterday Leukocytosis has improved plan to repeat chest x-ray by pulmonology in a.m. Anticipate discharge in the next 24-48 hours pending pulmonology final recommendation Continue current antibiotic IV Rocephin IV azithromycin Patient denies fever headache chest pain I am seeing the patient for shortness of breath Exam Narrative: Alert Chest bilateral crackles and wheeze Abdomen nontender nondistended CVS S1 + S2 Lower extremity edema Objective Data Vital Signs Vital Signs: Vital Signs - 24 hr 05/11/21 10:51 05/11/21 10:54 05/11/21 11:00 Temperature Pulse Rate Respiratory Rate Blood Pressure Pulse Oximetry 96 94 94 05/11/21 11:09 05/11/21 14:00 05/11/21 17:23 Temperature 97.3 F L Pulse Rate 72 72 Respiratory Rate 19 Blood Pressure 97/60 L Pulse Oximetry 92 93 05/11/21 17:32 05/11/21 19:04 05/11/21 21:49 Temperature 98.0 F Pulse Rate 75 Respiratory Rate 18 Blood Pressure 118/74 101/66 Pulse Oximetry 92 91 92 05/11/21 22:31 05/12/21 05:32 Temperature 98.7 F Pulse Rate 59 L 55 L Respiratory Rate 18 18 Blood Pressure 105/71 Pulse Oximetry 90 93 Intake/Output Intake/Output: Intake & Output 05/09/21 05/10/21 05/11/21 05/12/21 23:59 23:59 23:59 23:59 Intake Total 2400 2530 710 Balance 2400 2530 710 Meds/Results Medications: Active Medications Generic Name Dose Route Start Last Admin Trade Name Freq PRN Reason Stop Dose Admin Acetaminophen 650 mg 05/09/21 14:25 05/10/21 10:37 Acetaminophen 325 Mg Tablet PO 650 mg Q4H PRN Administration Mild Pain (1-3) or Fever Hydrocodone Bitart/Acetaminophen 1 tab 05/09/21 14:25 Hydrocodone/Acetaminophen (*Crx) 5-325 Mg Tablet PO Q4H PRN Pain Rated 4-6 Albuterol 2.5 mg 05/10/21 09:28 Albuterol Sulfate Neb 2.5 Mg/0.5 Ml Inh INHALATION Q6HRT PRN Shortness Of Breath Aspirin 81 mg 05/10/21 21:00 05/11/21 21:07 Aspirin 81 Mg Enteric Tablet PO 06/09/21 20:59 81 mg HS [place] Administration Atorvastatin Calcium 40 mg 05/10/21 18:00 05/11/21 17:23 Atorvastatin 40 Mg Tablet PO 40 mg QPM [place] Administration Budesonide 0.5 mg 05/10/21 20:00 05/11/21 22:28 Budesonide R
--- NOTE | 2021-05-12 10:50 | PM.DS ---
DS: Admitting Diagnosis Discharge Date 05/12/2021 Admitting Diagnosis Shortness of breath DS: Discharge Diagnosis Discharge Diagnosis (1) Acute respiratory failure with hypoxia: Code(s): J96.01 - Acute respiratory failure with hypoxia Status: Acute Assessment and Plan: most likely related to pneumonia associated with bronchitis most likely bacterial CT scan showed Reticulonodular densities were noted in the right upper lobe and he has been started on antibiotics for possible underlying infection. He traveled to [facility] within the last several months but he has had no other significant travel recently. Given upper lobe predominance and oxygen requirement pulmonology recommendation appreciated repeat chest x-ray with no evidence of pneumonia but done on 05/12/2021 He was treated with IV Rocephin and IV azithromycin Albuterol and Symbicort is added at discharge likely has acute bronchitis with right upper lobe pneumonia Possible reactive airway disease Added on Symbicort and albuterol inhaler at home discharge Azithromycin for 2 more days Off oxygen the time of discharge (2) Abnormal chest CT: Code(s): R93.89 - Abnormal findings on diagnostic imaging of other specified body structures Status: Acute Assessment and Plan: Pulmonary recommendation appreciated has pneumonia repeat chest x-ray stable (3) Hypertension: Code(s): I10 - Essential (primary) hypertension Status: Chronic Assessment and Plan: Continue home medication (4) Human immunodeficiency virus: Code(s): B20 - Human immunodeficiency virus [HIV] disease Status: Acute Assessment and Plan: On anti retroviral therapy. Patient reports undetectable viral load and normal CD4 counts. (5) Person under investigation for COVID-19: Code(s): Z20.822 - Contact with and (suspected) exposure to COVID-19 Status: Acute Assessment and Plan: neg SARS-CoV-2 by PCR. DS: Summary Hospital Course Hospital Course: See above Time Spent with Patient Time attestation: Total time spent providing and/or coordinating discharge services: 35 minutes Exam Narrative: GENERAL: The patient is well developed, not in acute distress HEENT: Nonicteric sclerae, PERRLA, EOMI. Oropharynx clear. Moist mucous membranes. Conjunctivae appear well perfused. CHEST: Chest wall is nontender. HEART: Regular rate and rhythm without murmur, rubs, or gallops LUNGS: Clear to auscultation bilaterally. no respiratory distress ABDOMEN: Soft, positive bowel sounds, non-tender, no organomegaly. SKIN: No rash, no excessive bruising, petechiae, or purpura. NEUROLOGIC: Cranial nerves II-XII intact, alert and oriented x 3, no gross motor deficits EXTREMITIES: no edema, cyanosis or clubbing Extrem: General: normal exam except as noted and no edema DS: Data Data Completed and Pending Labs on day of discharge: Labs from last 24 hours 05/12/21 05/12/21 06:17 06:15 WBC 8.4 RBC 4.62 Hgb 15.8 Hct 48.4 MCV 104.8 H MCH 34.2 H MCHC 32.6 RDW 16.7 H Plt Count 146 L MPV 10.1 Immature Gran % (Auto) 1.4 H Neut % (Auto) 62.9 Lymph % (Auto) 24.1 [place] % (Auto) 10.3 H Eos % (Auto) 1.1 Baso % (Auto) 0.2 Lymph # (Auto) 2.01 [place] # (Auto) 0.9 H Eos # (Auto) 0.1 Baso # (Auto) 0.0 Abs Immat Gran (auto) 0.12 H Absolute Neuts (auto) 5.3 Absolute Nucleated RBC 0.0 Nucleated RBC % 0.0 Sodium 132 L Potassium 3.9 Chloride 99 Carbon Dioxide 31 H Anion Gap 2 L BUN 22 H Creatinine 1.00 Estim Creat Clear Calc 80 Estimated GFR > 60 Glucose 91 Calcium 8.0 L Total Bilirubin 1.4 H AST 22 ALT 27 Alkaline Phosphatase 51 Total Protein 5.0 L Albumin 3.3 L Preliminary micro results at discharge 05/11/21 11:35 Blood Culture - Preliminary Blood 05/11/21 11:34 Blood Culture - Preliminary Blood Imaging Radiologist's rojelioi
== END 2021-05-12 12:13 | disposition home or self-care (01) | DRG 189 ==
LOC: ANHED 14:53 → ANH3MEDSUR 05-10 00:54
PROVIDERS: Internal Medicine; Physician Assistant; Admitting Provider Internal Medicine; Emergency Provider Emergency Medicine; Visit Provider Internal Medicine
DX: J96.01 Acute respiratory failure with hypoxia (principal); J18.9 Pneumonia, unspecified organism; B20 Human immunodeficiency virus [HIV] disease; J20.9 Acute bronchitis, unspecified; J45.909 Unspecified asthma, uncomplicated; Z20.822 Contact with and (suspected) exposure to COVID-19; R93.89 Abnormal findings on diagnostic imaging of other specified body structures; G47.33 Obstructive sleep apnea (adult) (pediatric); I10 Essential (primary) hypertension; F41.8 Other specified anxiety disorders; K21.9 Gastro-esophageal reflux disease without esophagitis; E78.00 Pure hypercholesterolemia, unspecified; Z79.82 Long term (current) use of aspirin; Z79.899 Other long term (current) drug therapy
CPT/HCPCS: 36415; 36600; 71045; 71046; 71275; 80048; 80053; 82375; 82805; 83050; 83735; 84439; 84443; 84480; 85025; 85027; 85610; 85730; 86140; 87040; 87804; 94640; 96374; 99285; A9270; C9803; J0456; J0696; J1100; J7030; Q9967; U0003; U0005

== ENCOUNTER 2021-05-27 22:08 | Emergency (ER) | payer MEDICARE, BC, SELFPAY ==
[2021-05-27 22:14] VITALS: BP 151/89; PULSE 89; RESP 17; TEMP 36.6; O2SAT 92
[2021-05-28 00:58] VITALS: BP 128/78; PULSE 79; RESP 16; O2SAT 92
--- NOTE | 2021-05-28 00:58 | PC.NURSE ---
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 no home O2. resps even/nonlabored. nasal clamp in place.
[2021-05-28] MEDS: OXYMETAZOLINE HCL 0.05% NAS 15 ML BTL (*BKC) 1 SPRAY NASAL (01:09)
--- NOTE | 2021-05-28 01:28 | ED.GENADULT ---
HPI - General Adult General Chief complaint: Epistaxis Stated complaint: nose bleed for 20 min. Time Seen by Provider: 05/28/21 00:46 History of Present Illness HPI narrative: Patient 71-year-old gentleman who presents to emergency department with chief complaint of epistaxis. Patient reports started having bleeding out of the left nostril today reports it was gushing lasted for about 20minutes. He also reports that he spit up about a half dollar size clot or the bleeding stopped. Patient reports that he was recently in the hospital for pneumonia and was treated with nasal cannula oxygen for some period of time. The patient does not have a humidifier at home denies being on blood thinners. Related Data Home Medications Medication Instructions Recorded Confirmed Genvoya 1 tablet PO QPM 05/09/21 05/09/21 aspirin 81 mg PO HS 05/09/21 05/09/21 atorvastatin 40 mg PO QPM 05/09/21 05/09/21 celecoxib 200 mg PO DAILY 05/09/21 05/09/21 citalopram 40 mg PO DAILY 05/09/21 05/09/21 furosemide 40 mg PO DAILY 05/09/21 05/09/21 metoprolol succinate 50 mg PO QPM 05/09/21 05/09/21 pantoprazole 40 mg PO BID 05/09/21 05/09/21 potassium chloride [Klor-Con M10] 10 meq PO BID 05/09/21 05/09/21 testosterone propionate 5 mg IM [id number] 05/09/21 05/09/21 valsartan 320 mg PO DAILY 05/09/21 05/09/21 Allergies Allergy/AdvReac Type Severity Reaction Status Date / Time No Known Allergies Allergy Verified 05/27/21 22:17 Review of Systems Review of Systems: A 10 system review of systems was completed on the patient and is negative except for what is stated in the HPI. Nursing and ancillary documentation was reviewed. [facility] Past Medical History Medical History Depression with anxiety Gastroesophageal reflux disease Human immunodeficiency virus Hypercholesterolemia Hypertension Obstructive sleep apnea Intolerant to CPAP. Surgical History Surgical History History of arthroscopy of right knee History of carpal tunnel release History of left hip replacement History of lumbar surgery Family History Family History Other Heart disease Social History Social History Social History: The patient is , his several years ago. He lives in his own home in [place] with his dog Ania. 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 Lifelong nonsmoker. No alcohol or illicit substance abuse. Exam Narrative: GENERAL: Well-appearing, well-nourished, and in no acute distress. HEAD: Normocephalic, atraumatic. EYES: PERRLA and EOMI. ENT: Nares clear, no rhinorrhea or epistaxis. Mucous membranes moist. There is a significant amount of dried blood in the posterior nasopharynx. Bleeding is currently stopped at this time NECK: Supple. CHEST: Clear to auscultation. No respiratory distress. HEART: Regular rate and rhythm. No murmur heard. Normal peripheral pulses. ABDOMEN: Soft, nontender, nondistended, normal active bowel sounds. EXTREMITIES: Normal range of motion. No edema. SKIN: Warm, dry, no rash. NEURO: No focal deficits. Alert and oriented x3. PSYCH: Normal mood and affect. Course Course Emergency Course: Afrin was applied to the patient's nostrils. Vital Signs Vital signs: Vital Signs Temperature 36.6 C 05/27/21 22:14 Pulse Rate 89 05/27/21 22:14 Respiratory Rate 17 05/27/21 22:14 Blood Pressure 151/89 H 05/27/21 22:14 Pulse Oximetry 92 05/27/21 22:14 Temperature 36.6 C 05/27/21 22:14 Pulse Rate 79 05/28/21 00:58 Respiratory Rate 16 05/28/21 00:58 Blood Pressure 128/78 05/28/21 00:58 Pulse Oximetry 92 05/28/21 00:58 Medical Decision Making Vital Signs Vital Signs: Vital Signs Temperature 36.6 C 05/27/21 22:14 Pulse Rate 89 05/27/21 22:14 Res
[2021-05-28 02:21] VITALS: BP 128/78; PULSE 80; RESP 16; TEMP 36.2; O2SAT 94
== END 2021-05-28 02:39 | disposition home or self-care (01) ==
PROVIDERS: Emergency Provider Emergency Medicine
DX: R04.0 Epistaxis (principal); I10 Essential (primary) hypertension
CPT/HCPCS: 99282; A9270

== ENCOUNTER 2021-06-01 23:07 | Emergency (ER) | payer MEDICARE, BC, SELFPAY ==
[2021-06-01 23:38] VITALS: BP 129/78; PULSE 65; RESP 18; TEMP 36.9; O2SAT 96
--- NOTE | 2021-06-02 | ED.GENADULT ---
HPI - General Adult General Chief complaint: Unspecified Stated complaint: nose bleed Time Seen by Provider: 06/01/21 23:55 Source: patient Mode of arrival: ambulatory Limitations: no limitations History of Present Illness HPI narrative: Patient is a 71-year-old male complaining of nosebleed, left nostril, sudden onset started tonight. Patient states that he had a similar episode 1 week ago was seen here and spontaneously resolved. Patient denies any injury. Patient denies being on any oral anticoagulants, I am just on baby aspirin which I take at night . Related Data Home Medications Medication Instructions Recorded Confirmed Genvoya 1 tablet PO QPM 05/09/21 05/09/21 aspirin 81 mg PO HS 05/09/21 05/09/21 atorvastatin 40 mg PO QPM 05/09/21 05/09/21 celecoxib 200 mg PO DAILY 05/09/21 05/09/21 citalopram 40 mg PO DAILY 05/09/21 05/09/21 furosemide 40 mg PO DAILY 05/09/21 05/09/21 metoprolol succinate 50 mg PO QPM 05/09/21 05/09/21 pantoprazole 40 mg PO BID 05/09/21 05/09/21 potassium chloride [Klor-Con M10] 10 meq PO BID 05/09/21 05/09/21 testosterone propionate 5 mg IM [id number] 05/09/21 05/09/21 valsartan 320 mg PO DAILY 05/09/21 05/09/21 Allergies Allergy/AdvReac Type Severity Reaction Status Date / Time No Known Allergies Allergy Verified 06/02/21 00:12 Review of Systems Review of Systems: All systems reviewed & are unremarkable except as noted in HPI and below Constitutional: Constitutional: Reports as per HPI and Reports no additional constitutional complaints [facility] Past Medical History Medical History Depression with anxiety Gastroesophageal reflux disease Human immunodeficiency virus Hypercholesterolemia Hypertension Obstructive sleep apnea Intolerant to CPAP. Surgical History Surgical History History of arthroscopy of right knee History of carpal tunnel release History of left hip replacement History of lumbar surgery Family History Family History Other Heart disease Social History Social History Social History: The patient is , his several years ago. He lives in his own home in [place] with his dog Ania. 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 Lifelong nonsmoker. No alcohol or illicit substance abuse. Exam Const: General: cooperative, healthy appearing, comfortable, no acute distress, well developed, alert and awake; No confusion Orientation/consciousness: oriented to person, oriented to place, oriented to time, patient oriented x3 and No confusion Limitations: no limitations HENMT: Head: normal to inspection, normocephalic and atraumatic Ears: hearing grossly normal bilaterally, TM normal on the right and TM normal on the left General nose exam: Normal external nose present, Epistaxis present (Left nare) and Other nasal findings present (Negative for septal hematoma) Face and sinus: normal facial exam Mouth: Yes Normal oral and palatal mucosa present, Yes lip normal, Yes tongue normal and Yes oropharynx normal Throat: posterior oropharynx normal, tonsils normal and uvula midline Eyes: General: appearance normal, both eyes and all related structures Pupils: Equal, round and reactive pupils present EOM: EOMs intact bilaterally Neck: Neck: normal visual inspection, full ROM, no lymphadenopathy and no meningeal signs Chest: Chest palpation & inspection: normal inspection of the chest Resp: Effort & Inspection: normal respiratory effort, able to speak in complete sentences, no respiratory distress and not tachypneic Auscultation: clear to auscultation bilaterally, no crackles, no rales, no rhonchi and no wheezes Cardio: Rate: regular rate Rhythm: regular rhythm GI: Inspection: normal to inspection GI Palp: No abdominal tenderness, Yes Soft to palpation,
[2021-06-02] MEDS: OXYMETAZOLINE HCL 0.05% NAS 15 ML BTL (*BKC) 1 SPRAY NASAL (00:13)
[2021-06-02 00:17] VITALS: BP 120/79; PULSE 82; RESP 18
== END 2021-06-02 00:38 | disposition home or self-care (01) ==
PROVIDERS: Emergency Provider Emergency Medicine; PCP Internal Medicine Infectious Disease
DX: R04.0 Epistaxis (principal); F41.8 Other specified anxiety disorders; K21.9 Gastro-esophageal reflux disease without esophagitis; E78.00 Pure hypercholesterolemia, unspecified; I10 Essential (primary) hypertension; G47.33 Obstructive sleep apnea (adult) (pediatric); Z21 Asymptomatic human immunodeficiency virus [HIV] infection status; Z96.642 Presence of left artificial hip joint
CPT/HCPCS: 99283; A9270

== ENCOUNTER 2022-06-11 09:18 | Emergency (ER) | payer MEDICARE, BC, SELFPAY ==
--- NOTE | ~2022-06-11 | XR_ITS ---
EXAMINATION: XR ankle RT min 3V DATE: 06/11/2022 12:32 INDICATION: Right ankle pain and swelling. TECHNIQUE: 4 views of right ankle were obtained. COMPARISON: None. FINDINGS: Bone alignment is normal. No fracture. There is mild osteoarthritis of the ankle joint and mild to moderate osteoarthritis of some of the midfoot joints. There is an enthesophyte at plantar as pect of calcaneal tuberosity. Ankle soft tissue swelling is noted. There are calcifications at the sk in of lateral ankle. There is chronic heterotopic ossification distal to medial malleolus. IMPRESSION: 1. Polyarticular osteoarthritis. Reviewed, dictated and finalized at location A. CLE SERVICE TECHNICIAN
--- NOTE | ~2022-06-11 | US_ITS ---
EXAMINATION: US venous doppler LE RT DATE: 06/11/2022 14:18 INDICATION: right lower extremity edema, pain, hx DVT . TECHNIQUE: Grayscale images without and with compression and Doppler images of the right lower extrem ity veins were obtained. COMPARISON: None FINDINGS: The right common femoral vein, profunda (deep) femoral vein, femoral vein, popliteal vein, peroneal v ein, posterior tibial veins, gastrocnemius vein, and greater saphenous vein are patent. IMPRESSION: 1. Patent right lower extremity veins. No evidence of deep venous thrombosis. Reviewed, dictated and finalized at location K. COLOGIST
--- NOTE | ~2022-06-11 | XR_ITS ---
EXAMINATION: XR foot RT min 3V DATE: 06/11/2022 12:32 INDICATION: Right foot pain and swelling. TECHNIQUE: 4 views of right foot were obtained. COMPARISON: None. FINDINGS: Bone alignment is normal. No fracture. There is mild osteoarthritis of first metatarsophala ngeal joint and some of the interphalangeal joints. There is mild to moderate osteoarthritis of many of the midfoot joints. There is an enthesophyte at plantar aspect of calcaneal tuberosity. IMPRESSION: 1. Polyarticular osteoarthritis. Reviewed, dictated and finalized at location A. WINDER
[2022-06-11 09:24] VITALS: BP 141/85; PULSE 80; RESP 18; TEMP 36.4; O2SAT 93
--- NOTE | 2022-06-11 13:33 | ED.LOWEXIN ---
HPI - Extremity Injury (Lower) General Chief Complaint: Extremity Injury, Lower Stated Complaint: foot pain and swelling Time Seen by Provider: 06/11/22 13:15 Source: patient Mode of arrival: ambulatory Limitations: no limitations History of Present Illness HPI Narrative: This is a 72 year old male that presents to the ER for right ankle pain and swelling ongoing over the last couple of days. No recent injuries or trauma. The pain is worse with movement and weightbearing. Relieved with rest. 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 He does take Eliquis daily. Denies fever or erythema. Related Data Home Medications Medication Instructions Recorded Confirmed aspirin 81 mg tablet 81 mg PO HS 05/09/21 05/09/21 atorvastatin 40 mg tablet 40 mg PO QPM 05/09/21 05/09/21 celecoxib 200 mg capsule 200 mg PO DAILY 05/09/21 05/09/21 citalopram 40 mg tablet 40 mg PO DAILY 05/09/21 05/09/21 elviteg 150 mg-cob 150 mg-emtricit 1 tablet PO QPM 05/09/21 05/09/21 200 mg-tenofo alafenam 10 mg tablet (Genvoya) furosemide 20 mg tablet 40 mg PO DAILY 05/09/21 05/09/21 metoprolol succinate 50 mg 50 mg PO QPM 05/09/21 05/09/21 tablet,extended release 24 hr pantoprazole 40 mg tablet,delayed 40 mg PO BID 05/09/21 05/09/21 release potassium chloride 10 mEq 10 meq PO BID 05/09/21 05/09/21 tablet,extended release(part/cryst) (Klor-Con M) testosterone propionate 100 mg/mL 5 mg IM [id number] 05/09/21 05/09/21 intramuscular oil valsartan 320 mg tablet 320 mg PO DAILY 05/09/21 05/09/21 Allergies Allergy/AdvReac Type Severity Reaction Status Date / Time No Known Allergies Allergy Verified 06/11/22 12:53 Review of Systems Review of Systems: CONSTITUTIONAL: Denies fever CARDIOVASCULAR: Reports edema. Denies chest pain RESPIRATORY: Denies dyspnea. SKIN: Denies rash MUSCULOSKELETAL: Reports joint pain, and myalgia. NEUROLOGIC: Denies numbness All systems reviewed & are unremarkable except as noted in HPI and below PMFSH Past Medical History Medical History Depression with anxiety Gastroesophageal reflux disease Human immunodeficiency virus Hypercholesterolemia Hypertension Obstructive sleep apnea Intolerant to CPAP. Surgical History Surgical History History of arthroscopy of right knee History of carpal tunnel release History of left hip replacement History of lumbar surgery Family History Family History Other Heart disease Social History Social History Social History: The patient is , his several years ago. He lives in his own home in [place] with his dog Ania. 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 Lifelong nonsmoker. No alcohol or illicit substance abuse. Exam Narrative: GENERAL: Well-appearing, well-nourished, and in no acute distress. HEAD: Normocephalic, atraumatic. EYES: EOMI. CHEST: No respiratory distress. HEART: Regular rate EXTREMITIES: Normal range of motion. Mild edema about the right lateral malleoli. No erythema or warmth. Normal DP pulse. Normal sensation SKIN: Warm, dry, no rash. NEURO: No focal deficits. Alert and oriented x3. PSYCH: Normal mood and affect Course Course Emergency Course: Patient updated on work-up Consultations Consultation #1: Spoke with Dr. Harmon about patient and workup. Will follow up with patient for further treatment and monitoring. Agrees with steroid taper for treatment of gout flare Date: 06/11/22 Time: 15:32 Vital Signs Vital signs: Vital Signs Temperature 97.6 F 06/11/22 09:24 Pulse Rate 80 06/11/22 09:24 Respiratory Rate 18 06/11/22 09:24 Blood Pressure 141/85 H 06/11/22 09:24 Pulse Oximetry 93 06/11/22 09:24 Oxygen Delivery Room Air 06/11/22 09:24 Temperature 97.6 F 06/11/22 09:24 Pulse Rate 80
[2022-06-11 13:49] LABS: Basophils Absolute Auto 0.1 K/mm3 (0.0-0.1); Basophils Percent Auto 0.8 % (0.2-1.2); Eosinophils Absolute Auto 0.2 K/mm3 (0-0.3); Eosinophils Percent Auto 2.5 % (0-4.4); Hematocrit 51.8 % (42.0-52.0); Hemoglobin 16.8 g/dL (14.0-18.0); Immature Granulocyte Absolute 0.06 K/mm3 (0.00-0.031); Immature Granulocyte Percent A 0.8 % (0-0.5); Lymphocytes Absolute Auto 1.68 K/mm3 (0.9-3.2); Lymphocytes Percent Auto 21.1 % (18.3-44.2); Mean Corpuscular HGB Conc 32.4 g/dl (32-36); Mean Corpuscular Hemoglobin 33.1 pg (26-34); Mean Platelet Volume 10.1 fl (7.4-10.4); Monocytes Absolute Auto 0.8 K/mm3 (0.1-0.6); Monocytes Percent Auto 9.5 % (2.6-8.5); Neutrophils Absolute Auto 5.2 K/mm3 (1.3-6.7); Neutrophils Percent Auto 65.3 % (45.5-73.1); Platelet Count Result 178 k/mm3 (150-375); Red Blood Count 5.08 M/mm3 (4.6-6.20); Red Cell Distribution Width 15.8 % (11.5-14.5)
[2022-06-11 14:02] LABS: Anion Gap 5 mmol/L (8-16); Blood Urea Nitrogen 21 mg/dL (9-20); CRP 0.6 mg/dL (<1.0); Calcium 8.8 mg/dL (8.4-10.2); Carbon Dioxide 33 mmol/L (22-30); Chloride 102 mmol/L (98-107); Estimated CRCL calculation 56 ml/min; Estimated Glomerular Filt Rate 50; Glucose 107 mg/dL (65-110); Potassium 5.2 mmol/L (3.4-5.0); Sodium 140 mmol/L (137-145); Uric Acid 10.2 mg/dL (3.5-8.5)
[2022-06-11 14:57] LABS: Erythrocyte Sedimentation Rate 1 mm/hr (0-20)
== END 2022-06-11 15:44 | disposition home or self-care (01) ==
PROVIDERS: Emergency Provider Physician Assistant
DX: M25.571 Pain in right ankle and joints of right foot (principal); E87.5 Hyperkalemia; M10.9 Gout, unspecified; I10 Essential (primary) hypertension; E78.00 Pure hypercholesterolemia, unspecified; G47.33 Obstructive sleep apnea (adult) (pediatric); Z21 Asymptomatic human immunodeficiency virus [HIV] infection status; K21.9 Gastro-esophageal reflux disease without esophagitis; F41.8 Other specified anxiety disorders; Z79.899 Other long term (current) drug therapy; Z79.82 Long term (current) use of aspirin; Z86.718 Personal history of other venous thrombosis and embolism; Z79.51 Long term (current) use of inhaled steroids
CPT/HCPCS: 36415; 73610; 73630; 80048; 84550; 85025; 85652; 86140; 93971; 99284

== ENCOUNTER 2023-06-04 21:38 | Emergency (ER) | payer MEDICARE, BC, SELFPAY ==
[2023-06-04 22:06] VITALS: BP 104/66; PULSE 80; RESP 16; TEMP 35.8; O2SAT 95
[2023-06-04 22:26] LABS: Basophils Absolute Auto 0.1 K/mm3 (0.0-0.1); Basophils Percent Auto 0.5 % (0.2-1.2); Eosinophils Absolute Auto 0.3 K/mm3 (0-0.3); Eosinophils Percent Auto 3.1 % (0-4.4); Hematocrit 47.9 % (42.0-52.0); Hemoglobin 15.2 g/dL (14.0-18.0); Immature Granulocyte Absolute 0.03 K/mm3 (0.00-0.031); Immature Granulocyte Percent A 0.3 % (0-0.5); Lymphocytes Absolute Auto 2.09 K/mm3 (0.9-3.2); Lymphocytes Percent Auto 22.6 % (18.3-44.2); Mean Corpuscular HGB Conc 31.7 g/dl (32-36); Mean Corpuscular Hemoglobin 30.2 pg (26-34); Mean Platelet Volume 10.5 fl (7.4-10.4); Monocytes Absolute Auto 0.9 K/mm3 (0.1-0.6); Monocytes Percent Auto 9.4 % (2.6-8.5); Neutrophils Absolute Auto 5.9 K/mm3 (1.3-6.7); Neutrophils Percent Auto 64.1 % (45.5-73.1); Platelet Count Result 230 k/mm3 (150-375); Red Blood Count 5.04 M/mm3 (4.6-6.20); Red Cell Distribution Width 15.4 % (11.5-14.5); White Blood Count 9.2 K/mm3 (4.5-10.0)
[2023-06-04 22:39] LABS: Alanine Aminotransferase 38 U/L (6-50); Albumin Level 4.3 g/dL (3.5-5.1); Alkaline Phosphatase 66 U/L (38-126); Anion Gap 10 mmol/L (8-16); Aspartate Amino Transferase 37 U/L (17-59); Bilirubin,Total 0.5 mg/dL (0.2-1.3); Blood Urea Nitrogen 34 mg/dL (9-20); Calcium 9.3 mg/dL (8.4-10.2); Carbon Dioxide 28 mmol/L (22-30); Chloride 100 mmol/L (98-107); Estimated CRCL calculation 51 ml/min; Estimated Glomerular Filt Rate 46; Glucose 170 mg/dL (65-110); Potassium 4.2 mmol/L (3.4-5.0); Sodium 138 mmol/L (137-145)
[2023-06-04 22:41] LABS: Partial Thromboplastin Time 30.8 SECONDS (22.3-36.8)
--- NOTE | 2023-06-04 23:01 | PC.NURSE ---
pt approached triage desk and states his nose has stopped bleeding and is going to call PCP in AM. Does not wish to be seen by provider. Pt ambulated out of ED with steady gait, in no obvious distress.
== END 2023-06-04 23:11 | disposition left against medical advice (07) ==
LOC: ANHED 23:06
PROVIDERS: Emergency Provider Emergency Medicine
DX: R04.0 Epistaxis (principal); Z53.21 Procedure and treatment not carried out due to patient leaving prior to being seen by health care provider
CPT/HCPCS: 36415; 80053; 85025; 85610; 85730; 99199